=== PATIENT | male | born 1980 | race Caucasian/White ===

== ENCOUNTER → 2019-05-08 21:00 | Outpatient (CLI) | payer BC, SELFPAY ==
[2019-05-08 18:02] VITALS: BMI 37.2
== END ==
PROVIDERS: Family Provider Family Medicine; PCP Family Medicine; Referring Provider Nurse Practitioner; Visit Provider Nurse Practitioner
DX: R79.1 Abnormal coagulation profile (principal); I82.409 Acute embolism and thrombosis of unspecified deep veins of unspecified lower extremity
CPT/HCPCS: 81241; 85300; 86147

== ENCOUNTER → 2023-01-09 | Outpatient (CLI) | payer BC, SELFPAY ==
[2023-01-09 21:21] LABS: Vitamin B12 1269 pg/mL (211-911)
[2023-01-09 21:31] LABS: Hemoglobin A1c 5.1 % (3.8-5.6)
[2023-01-09 21:32] LABS: AST(SGOT) 40 U/L (15-37); Alanine Aminotransfer ALT/SGPT 61 U/L (16-61); Albumin, Serum 3.9 g/dL (3.2-5.0); Alkaline Phosphatase 71 U/L (45-117); Anion Gap 7 (5-15); BUN 20 mg/dL (7-18); BUN/Creat Ratio 18.5 RATIO (10-20); Chloride 102 mmol/L (98-107); Creatinine, Serum 1.08 mg/dL (0.70-1.30); EST Glomerular Filtration Rate 80 mL/min (>60); Est Glom Filt Rate - Afr Amer 97 mL/min (>60); Globulin 3.9 g/dL (2.2-4.2); Glucose 108 mg/dL (74-106); PSA,Total- Diagnostic 0.82 ng/mL (0.0-4.0); Potassium 3.9 mmol/L (3.5-5.1); Protein, Total 7.8 g/dL (6.4-8.2); Sodium Level 139 mmol/L (136-145); Thyroid Stim Hormone (TSH) 2.59 uIU/mL (0.358-3.74)
== END | disposition home or self-care (01) ==
PROVIDERS: PCP Family Medicine; Visit Provider Nurse Practitioner
DX: R63.5 Abnormal weight gain (principal); R53.83 Other fatigue; R35.0 Frequency of micturition; R63.1 Polydipsia
CPT/HCPCS: 80053; 82607; 83036; 84153; 84403; 84443

== ENCOUNTER → 2023-03-20 | Outpatient (CLI) | payer BC, SELFPAY ==
[2023-03-20 20:46] LABS: Absolute Lymphocyte Count 2.13 X10^3/uL (0.83-4.51); Absolute Neutrophil Count 2.8 X10^3/uL (2.0-7.7); Basophil# 0.05 X10^3/uL; Basophil% 0.9 % (0-1); Eosinophil# 0.17 X10^3/uL; Hematocrit 44.4 % (40-54); Hemoglobin 14.2 g/dL (13.0-16.5); Lymphocyte # 2.13 X10^3/ul (0.83-4.51); Lymphocyte % 37.4 % (19-41); Mean Corpuscular Hgb 28.5 pg (27.0-32.0); Mean Platelet Vol. 11.4 fl (6.2-12.0); Monocyte# 0.54 X10^3/uL; Monocyte% 9.5 % (0-10); NRBC Flagged by Analyzer 0 % (0-5); Neutrophil # 2.79 X10^3/uL (2.7-7.7); Platelet Count 194 K/mm3 (150-450); RBC Distribution Width CV 13.4 % (11.6-14.6); RBC Distribution Width SD 43.8 fl (35.1-43.9); Red Blood Count 4.99 M/mm3 (4.6-6.2); White Blood Count 5.7 K/mm3 (4.4-11.0)
[2023-03-20 21:14] LABS: PSA,Total - Annual Screen 1.09 ng/mL (0.00-4.00)
== END | disposition home or self-care (01) ==
PROVIDERS: Visit Provider Nurse Practitioner
DX: N52.9 Male erectile dysfunction, unspecified (principal); R79.89 Other specified abnormal findings of blood chemistry
CPT/HCPCS: 84153; 84403; 85025; G0103

== ENCOUNTER → 2023-05-01 | Outpatient (CLI) | payer BC, SELFPAY ==
[2023-05-01 21:35] LABS: PSA,Total- Diagnostic 0.75 ng/mL (0.0-4.0)
== END | disposition home or self-care (01) ==
PROVIDERS: Visit Provider Nurse Practitioner
DX: R79.89 Other specified abnormal findings of blood chemistry (principal); E29.1 Testicular hypofunction
CPT/HCPCS: 84153; 84403

== ENCOUNTER → 2023-08-07 | Outpatient (CLI) | payer BC, SELFPAY | END | disposition home or self-care (01) | PROVIDERS: PCP Nurse Practitioner; Visit Provider Nurse Practitioner | DX: E29.1 Testicular hypofunction (principal) | CPT/HCPCS: 84403 ==

== ENCOUNTER → 2024-01-08 | Outpatient (CLI) | payer BC, SELFPAY ==
--- OUTSIDE RECORDS SUMMARY | 2024-01-08 23:36 | XMS RPT_ITS | CCD ---
Author Name Unknown Address [address] [facility] [address] [place] [address] Organization [facility] Care Team Providers Care Station Worker Name Role Phone Indiana Garcia Primary Care Provider Mini Farley Primary Care Provider UNA MUNOZ Attending Unavailable MINI FARLEY Primary Care Unavailable UNA MUNOZ Referring Unavailable MINI FARLEY Primary Care Unavailable UNA MUNOZ Attending Unavailable UNA MUNOZ Attending Unavailable MINI FARLEY Primary Care Unavailable Miguelito MOTORCYCLE ENGINE ASSEMBLER.CRANK HANDMini Primary Care Provide r Medications Current Medications Medication Drug Class(es) Dates Sig (Normalized) Sig (Original) 200 actuat albuterol 0.09 mg/actuat dry powder inhaler (4 sources) beta2-Adrenergic Agonist Albuterol Sulfate 108 (90 Base) MCG/ACT aerosol powder Inhale. 0 Active apixaban 5 mg oral tablet (2 sources) Factor Xa Inhibitor Start: 12-02-2018 take 2 tablets by mouth twice daily, then take 1 tablet by mouth twice daily apixaban (ELIQUIS STARTER PACK) 5 MG TABS tablet Take 10 mg (2 tablets) orally twice daily for 7 days, then take 5 mg (1 tablet) orally twice daily thereafter. 74 tablet 0 12/02/2018 Active ibuprofen 800 mg oral tablet (1 source) Nonsteroidal Anti-inflammatory Drug Start: 12-09-2019 ibuprofen (ADVIL;MOTRIN) 800 MG tablet Ibuprofen Ibuprofen Active 800 MG THREE TIMES A DAY 90 December 09, 2019 7:51pm 12-09-2019 [facility] ([id number]) 0 12/09/2019 Active sodium chloride nebulizer 0.9 % NEBU 30 mL with albuterol (5 MG/ML) 0.5% NEBU (1 source) sodium chloride nebulizer 0.9 % NEBU 30 mL with albuterol (5 MG/ML) 0.5% NEBU Inhale into the lungs once 0 Active tadalafil 20 mg oral tablet (1 source) Phosphodiesterase 5 Inhibitor Start: 09-20-2020 End: 09-30-2020 tadalafil (CIALIS) 20 MG tablet Indications: Erectile dysfunction, unspecified erectile dysfunction type Take 1 tablet by mouth as needed for Erectile Dysfunction 10 tablet 0 09/20/2020 09/30/2020 Active 5000 mg testosterone 0.01 mg/mg topical gel (4 sources) Androgen Start: 01-30-2023 testosterone (Androgel) 50 MG/5GM (1%) gel apply 1 packet to SHOULDERS once daily 0 01/30/2023 Active warfarin sodium 10 mg oral tablet (9 sources) Vitamin K Antagonist Start: 08-03-2023 take 1 tablet by mouth four times weekly warfarin (Coumadin) 10 MG tablet TAKE 10MG BY MOUTH 4 TIME A WEEK 0 08/03/2023 Active Completed/Discontinued Medications Medication Drug Class(es) Dates Sig (Normalized) Sig (Original) 0.8 ml enoxaparin sodium 150 mg/ml prefilled syringe (1 source) Low Molecular Weight Heparin Start: 04-07-2022 inject 120 mg by subcutaneous injection every twelve hours enoxaparin (LOVENOX) 120 mg/0.8 mL injection Inject 0.8 mL subcutaneously q 12 HR. 12 Each 0 04/07/2022 Active Problems Active Problems Problem Classification Problem Date Documented Da te Episodic/Chronic Asthma (4 sources) Mild intermittent asthma; Translations: [Mild intermittent asthma, uncomplicated] Onset: 08-15-2023 08-15-2023 Chronic Other lower respiratory disease (1 source) Dyspnea; Translations: [Shortness of breath] 08-15-2023 Episodic Other male genital disorders (1 source) Male erectile dysfunction, unspecified; Translations: [Erectile dysfunction, unspecified erectile dysfunction type] Chronic Other non-traumatic joint disorders (1 source) Pain in right knee; Translations: [Pain in joint, lower leg] 01-07-2024 Episodic Other nutritional; endocrine; and metabolic disorders (2 sources) Severe obesity; Translations: [Morbid (severe) obesity due to excess calories] 08-15-2023 Chronic Other nutritional; endocrine; and metabolic disorders (2 sources) Morbid (severe) obesity due to excess calories; Translations: [Morbid (severe) obesity due to excess calories (HCC)] Onset: 11-21-2023 Chronic Other nutritional; endocrine; and metabolic disorders (2 sources) Body mass index (BMI) 40.0-44.9, adult; Translations: [Body mass index (BMI) 40.0-44.9, adult (HCC)] Onset: 11-21-2023 Chronic Other nutritional; endocrine; and metabolic disorders (1 source) Obese class II; Translations: [Obesity, unspecified] Onset: 04-06-2022 04-06-2022 Chronic Pulmonary heart disease (6 sources) H/O: pulmonary embolus; Translations: [Personal history of pulmonary embolism] Onset: 10-15-2023 08-15-2023 Episodic Residual codes; unclassified (2 sources) Obstructive sleep apnea syndrome; Translations: [Obstructive sleep apnea (adult) (pediatric)] 08-15-2023 Chronic Residual codes; unclassified (2 sources) Obstructive sleep apnea (adult) (pediatric); Translations: [Obstructive sleep apnea (adult) (pediatric)] Onset: 11-21-2023 Chronic Skin and subcutaneous tissue infections (1 source) Cellulitis of right lower limb Past or Other Problems Problem Classification Problem Date Documented Da te Episodic/Chronic Nonspecific chest pain (1 source) Chest pain; Translations: [Chest pain, unspecified] Onset: 04-05-2022 04-05-2022 Episodic Results Test Name Value Interpretation Reference Range Facil ity Vital Signs Date Time Vital Sign Value Performing Clinician Faci lity 11-21-2023 15:43-0500 Diastolic blood pressure 86 mm[Hg] Una Munoz MD Work Phone: [employer] 11-21-2023 15:43-0500 Systolic blood pressure 141 mm[Hg] Una Munoz MD Work Phone: [employer] 11-21-2023 15:42-0500 Body height 175.3 cm Una Munoz MD Work Phone: [employer] 11-21-2023 15:42-0500 Body mass index (BMI) [Ratio] 40.52 kg/m2 Una Munoz MD Work Phone: [facility] [employer] 11-21-2023 15:42-0500 Body weight 124.47 kg Una Munoz MD Work Phone: [facility] [employer] 11-21-2023 15:42-0500 Heart rate 95 /min Una Munoz MD Work Phone: [facility] [employer] 11-21-2023 15:42-0500 Respiratory rate 18 /min Una Munoz MD Work Phone: [facility] [employer] 11-21-2023 15:42-0500 SaO2% (BldA) [Mass fraction] 95 % Una Munoz MD Work Phone: [facility] [employer] Encounters Encounter Date Encounter Type Care Provider Facility Start: 01-07-2024 Orders Only Una Swan PA-C Work Phone: Orthopaedics Procedures Date Procedure Procedure Detail Performing Clinician Start: 12-02-2018 Follow-up visit Start: 11-28-2018 Follow-up visit Plan of Treatment Date Care Activity Detail Author Start: 2041 RSV Immunization age d 60 or older (1 - 1-dose 60+ series) RSV Immunization aged 60 or older (1 - 1-dose 60+ series) [facility] [employer] Start: 2031 Shingles Vaccine (1 of 2) Shingles Vaccine (1 of 2) [facility] Work Phone: Start: 2031 Zoster Vaccines (1 of 2) Zoster Vacc rodney (1 of 2) [facility] Start: 12-16-2023 End: 12-16-2023 Patient encounter procedure 12/16/2023 9:15 AM EST Appointment [facility] Pulm Function Test [address] [place] [address] Una Munoz MD [address] [place] [address] [id number] [facility] Pulm Function Test Start: 11-21-2023 End: 11-21-2024 Home sleep test Home sleep test Sleep Center Routine Obstructive sleep apnea syndrome Expected: 11/21/2023 (Approximate), Expires: 11/21/2024 [facility] Work Phone: Immunizations Immunization Date Immunization Notes Care Provider Sandra harris 10-02-2020 influenza virus vacc ine, unspecified formulation Una Swan PA-C Work Phone: [facility] Payers Date Payer Category Payer Unknown [id number] 2022 Unknown [id number] 2019 Unknown [id number] 2015 Unknown [employer] [address] xxxxxxxxxxxx 2015-Present [phone] [address] [place] [address] xxxxxxxxxxxx [id number] Social History Date Type Detail Facility Start: 12-02-2018 End: 04-05-2022 Tobacco smoking status CTIS Never smoker [facility] Start: 1981 Sex Assigned At Not on file [facility] Work Phone: Start: 09-20-2020 End: 04-05-2022 Tobacco use and exposure Never used [employer] [place], [place] Start: 09-20-2020 End: 04-06-2022 Alcohol intake Current drinker of alcohol (finding) [facility] [place] Start: 09-20-2020 History SDOH Alcohol Frequency 2 [place], [place] Start: 09-20-2020 History SDOH Alcohol Std Drinks 1 [place] Exposure to SARS-CoV -2 (event) Not sure [place] Start: 07-16-2023 Gender identity Identifies as male gender (finding) [facility] Start: 04-06-2022 End: 08-15-2023 Sexual orientation Not on file [facility] Start: 04-06-2022 End: 08-15-2023 History of Social function [facility] [employer] National Score (1-10 0), lower number is lower risk 36 [facility] Start: 04-05-2022 [facility] Clinical Notes 04-05-2022 to 11-21-2023 Una Munoz MD - 11/21/2023 3:45 PM ESTPatient InstructionsUna Munoz MD - 08/15/2023 3:30 PM EDTPatient InstructionsTelephone Encounter - Gloriara Vivian MA - 07/23/2023 10:54 AM EDT Note Date & Type Note Facility 11-21-2023 Note 11/21/2023 REFERRING PHYSICIAN: MINI FARLEY REASON FOR REFERRAL: Chief Complaint Patient presents with Follow-up Chief complaint: Shortness of breath and obstructive sleep apnea syndrome History of Present Illness: Has not had the breathing difficulties that he had the last time he was here. Intermittent shortness of breath, intermittent tightness, intermittent wheeze. His only uses albuterol inhaler a few times in the past few months. Never did get a call to schedule the PFTs. Concerned he has obstructive sleep apnea, snores so loud that his cannot sleep, stops breathing, has excessive daytime somnolence. Willing to get a sleep study. ROS: Review of Systems Constitutional: Negative. HENT: Negative. Eyes: Negative. Respiratory: HPI Cardiovascular: Negative. Gastrointestinal: Negative. Endocrine: Negative. Musculoskeletal: Negative. Skin: Negative. Allergic/Immunologic: Negative. Neurological: Negative. Hematological: Negative. Psychiatric/Behavioral: Negative. Past Medical History: Past Medical History: Diagnosis Date Asthma Deep vein thrombosis (HCC) Low testosterone Pulmonary embolism (HCC) Past Surgical History Past Surgical History: Procedure Laterality Date KNEE ARTHROSCOPY Left x 4 Social History: Social History Socioeconomic History Marital status: Tobacco Use Smoking status: Never Smokeless tobacco: Never Substance and Sexual Activity Alcohol use: Yes Drug use: Never Medications: Current Outpatient Medications Medication Sig Dispense Refill Albuterol Sulfate 108 (90 Base) MCG/ACT aerosol powder Inhale. testosterone (Androgel) 50 MG/5GM (1%) gel apply 1 packet to SHOULDERS once daily warfarin (Coumadin) 10 MG tablet TAKE 10MG BY MOUTH 4 TIME A WEEK warfarin (Coumadin) 7.5 MG tablet take 1 tablet (7.5MG) by mouth EVERY SATURDAY,SATURDAY, AND MATEUSZ No current facility-administered medications for this visit. Allergies: No Known Allergies Family History: Family History Problem Relation Name Age of Onset Heart disease Maternal Grandmother Breast cancer Paternal Grandmother Diabetes Paternal Grandmother Physical Exam: BP (!) 141/86 (11/21/23 1543) Temp Pulse 95 (11/21/23 1542) Resp 18 (11/21/23 1542) SpO2 95 % (RA) (11/21/23 1542) Physical Exam Vitals and nursing note reviewed. Constitutional: General: He is not in acute distress. Appearance: Normal appearance. He is obese. He is not ill-appearing, toxic-appearing or diaphoretic. HENT: Head: Normocephalic and atraumatic. Nose: Nose normal. Mouth/Throat: Mouth: Mucous membranes are moist. Pharynx: Oropharynx is clear. No oropharyngeal exudate or posterior oropharyngeal erythema. Eyes: Extraocular Movements: Extraocular movements intact. Conjunctiva/sclera: Conjunctivae normal. Pupils: Pupils are equal, round, and reactive to light. Cardiovascular: Rate and Rhythm: Normal rate and regular rhythm. Heart sounds: Normal heart sounds. Pulmonary: Effort: Pulmonary effort is normal. No respiratory distress. Breath sounds: No stridor. No wheezing, rhonchi or rales. Musculoskeletal: General: Deformity present. No swelling. Cervical back: Neck supple. No rigidity. Lymphadenopathy: Cervical: No cervical adenopathy. Skin: General: Skin is warm and dry. Neurological: General: No focal deficit present. Mental Status: He is alert and oriented to person, place, and time. Psychiatric: Mood and Affect: Mood normal. Behavior: Behavior normal. Thought Content: Thought content normal. Judgment: Judgment normal. Radiology: Reviewed, normal PFT: Never scheduled Assessment and Plan: Jun was seen today for follow-up. Diagnoses and all orders for this visit: Obstructive sleep apnea syndrome (Primary) - Home sleep test; Future Mild intermittent asthma without complication History of pulmonary embolism Class 3 severe obesity due to excess calories without serious comorbidity with body mass index (BMI) of 40.0 to 44.9 in adult (HCC) Albuterol as needed Hold off on a controller medication for now PFTs HST Optimize weight Follow-up: Follow up for Test results. [facility] 11-21-2023 History of Presen t illness Narrative Images from the original note were not included. 11/21/2023 REFERRING PHYSICIAN: MINI FARLEY REASON FOR REFERRAL: Chief Complaint Patient presents with Follow-up Chief complaint: Shortness of breath and obstructive sleep apnea syndrome History of Present Illness: Has not had the breathing difficulties that he had the last time he was here. Intermittent shortness of breath, intermittent tightness, intermittent wheeze. His only uses albuterol inhaler a few times in the past few months. Never did get a call to schedule the PFTs. Concerned he has obstructive sleep apnea, snores so loud that his cannot sleep, stops breathing, has excessive daytime somnolence. Willing to get a sleep study. ROS: Review of Systems Constitutional: Negative. HENT: Negative. Eyes: Negative. Respiratory: HPI Cardiovascular: Negative. Gastrointestinal: Negative. Endocrine: Negative. Musculoskeletal: Negative. Skin: Negative. Allergic/Immunologic: Negative. Neurological: Negative. Hematological: Negative. Psychiatric/Behavioral: Negative. Past Medical History: Past Medical History: Diagnosis Date Asthma Deep vein thrombosis (HCC) Low testosterone Pulmonary embolism (HCC) Past Surgical History Past Surgical History: Procedure Laterality Date KNEE ARTHROSCOPY Left x 4 Social History: Social History Socioeconomic History Marital status: Tobacco Use Smoking status: Never Smokeless tobacco: Never Substance and Sexual Activity Alcohol use: Yes Drug use: Never Medications: Current Outpatient Medications Medication Sig Dispense Refill Albuterol Sulfate 108 (90 Base) MCG/ACT aerosol powder Inhale. testosterone (Androgel) 50 MG/5GM (1%) gel apply 1 packet to SHOULDERS once daily warfarin (Coumadin) 10 MG tablet TAKE 10MG BY MOUTH 4 TIME A WEEK warfarin (Coumadin) 7.5 MG tablet take 1 tablet (7.5MG) by mouth EVERY SATURDAY,SATURDAY, AND SATURDAY No current facility-administered medications for this visit. Allergies: No Known Allergies Family History: Family History Problem Relation Name Age of Onset Heart disease Maternal Grandmother Breast cancer Paternal Grandmother Diabetes Paternal Grandmother Physical Exam: BP (!) 141/86 (11/21/23 1543) Temp Pulse 95 (11/21/23 1542) Resp 18 (11/21/23 1542) SpO2 95 % (RA) (11/21/23 1542) Physical Exam Vitals and nursing note reviewed. Constitutional: General: He is not in acute distress. Appearance: Normal appearance. He is obese. He is not ill-appearing, toxic-appearing or diaphoretic. HENT: Head: Normocephalic and atraumatic. Nose: Nose normal. Mouth/Throat: Mouth: Mucous membranes are moist. Pharynx: Oropharynx is clear. No oropharyngeal exudate or posterior oropharyngeal erythema. Eyes: Extraocular Movements: Extraocular movements intact. Conjunctiva/sclera: Conjunctivae normal. Pupils: Pupils are equal, round, and reactive to light. Cardiovascular: Rate and Rhythm: Normal rate and regular rhythm. Heart sounds: Normal heart sounds. Pulmonary: Effort: Pulmonary effort is normal. No respiratory distress. Breath sounds: No stridor. No wheezing, rhonchi or rales. Musculoskeletal: General: Deformity present. No swelling. Cervical back: Neck supple. No rigidity. Lymphadenopathy: Cervical: No cervical adenopathy. Skin: General: Skin is warm and dry. Neurological: General: No focal deficit present. Mental Status: He is alert and oriented to person, place, and time. Psychiatric: Mood and Affect: Mood normal. Behavior: Behavior normal. Thought Content: Thought content normal. Judgment: Judgment normal. Radiology: Reviewed, normal PFT: Never scheduled Assessment and Plan: Jun was seen today for follow-up. Diagnoses and all orders for this visit: Obstructive sleep apnea syndrome (Primary) - Home sleep test; Future Mild intermittent asthma without complication History of pulmonary embolism Class 3 severe obesity due to excess calories without serious comorbidity with body mass index (BMI) of 40.0 to 44.9 in adult (HCC) Albuterol as needed Hold off on a controller medication for now PFTs HST Optimize weight Follow-up: Follow up for Test results. documented in this encounter [facility] 11-21-2023 Instructions Amna Oglesby MA - 11/21/2023 3:45 PM EST YOUR APPOINTMENT TODAY WAS WITH [facility], COPD CLINIC, PULMONARY AND SLEEP MEDICINE OFFICE. PLEASE CALL OUR OFFICE AT [phone] IF YOU HAVE NOT RECEIVED YOUR TEST RESULTS 7 DAYS AFTER TESTING IS COMPLETED. PLEASE REMEMBER TO REQUEST REFILLS AT YOUR OFFICE VISITS. PHONE/FAX REQUESTS REQUIRE 48-72 HOURS FOR RESPONSE. A FRIENDLY REMINDER COPAYS ARE DUE AT TIME OF SERVICE. THANK YOU. Our Patients Are Important! We want to improve and you can help. After your visit we want you to feel: Listened to, Respected and have your health care explained. You may receive a survey asking you about your visit. Please complete the survey. We will use your feedback to make improvements. COVID-19 VACCINATION INFORMATION: PH. [phone] [email or web address] [facility] Central Scheduling [phone] [facility] Sleep Scheduling [phone] documented in this encounter [facility] 08-15-2023 Note 08/15/2023 REFERRING PHYSICIAN: MINI FARLEY REASON FOR REFERRAL: Chief Complaint Patient presents with New Patient Chief complaint: Shortness of breath, tightness, chest pains History of Present Illness: Had a blood clot in his lung 03/2022, hospitalized at [facility] for 3 days. As a matter fact, has had 4 separate blood clots and the customer services supervisor has him on Coumadin for life. His INR is checked every 2 months, it has been as low as 1.5 before but most recently was 1.9. He is here because he started getting shortness of breath on exertion, tightness, and chest pains (not as severe) again just like he felt when he had the blood clot. He does wheeze on occasion. He notes that this mostly happens during exertion at work. He is also happens when the weather changes and he gets bad sinus problems when the weather changes, too. He only uses albuterol for his asthma, sometimes it helps and sometimes it does not. Has been diagnosed with asthma since childhood but never been on a controller medication. Never smoked. 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 His also complains about his snoring, thinks he might have sleep apnea. He does have daytime fatigue. ROS: Review of Systems Constitutional: Negative. HENT: Negative. Eyes: Negative. Respiratory: HPI Cardiovascular: Negative. Gastrointestinal: Negative. Endocrine: Negative. Musculoskeletal: Negative. Skin: Negative. Allergic/Immunologic: Negative. Neurological: Negative. Hematological: Negative. Psychiatric/Behavioral: Negative. Past Medical History: Past Medical History: Diagnosis Date Asthma Deep vein thrombosis (HCC) Low testosterone Pulmonary embolism (HCC) Past Surgical History Past Surgical History: Procedure Laterality Date KNEE ARTHROSCOPY Left x 4 Social History: Social History Socioeconomic History Marital status: Tobacco Use Smoking status: Never Smokeless tobacco: Never Substance and Sexual Activity Alcohol use: Yes Drug use: Never Medications: Current Outpatient Medications Medication Sig Dispense Refill Albuterol Sulfate 108 (90 Base) MCG/ACT aerosol powder Inhale. testosterone (Androgel) 50 MG/5GM (1%) gel apply 1 packet to SHOULDERS once daily warfarin (Coumadin) 10 MG tablet TAKE 10MG BY MOUTH 4 TIME A WEEK warfarin (Coumadin) 7.5 MG tablet take 1 tablet (7.5MG) by mouth EVERY SATURDAY,SATURDAY, AND SATURDAY No current facility-administered medications for this visit. Allergies: No Known Allergies Family History: Family History Problem Relation Name Age of Onset Heart disease Maternal Grandmother Breast cancer Paternal Grandmother Diabetes Paternal Grandmother Physical Exam: BP 122/85 (08/15/23 1527) Temp Pulse 75 (08/15/23 1527) Resp 14 (08/15/23 1527) SpO2 98 % (RA) (08/15/23 1527) Physical Exam Vitals and nursing note reviewed. Constitutional: General: He is not in acute distress. Appearance: Normal appearance. He is obese. He is not ill-appearing, toxic-appearing or diaphoretic. HENT: Head: Normocephalic and atraumatic. Nose: Nose normal. Mouth/Throat: Mouth: Mucous membranes are moist. Pharynx: Oropharynx is clear. No oropharyngeal exudate or posterior oropharyngeal erythema. Eyes: Extraocular Movements: Extraocular movements intact. Conjunctiva/sclera: Conjunctivae normal. Pupils: Pupils are equal, round, and reactive to light. Cardiovascular: Rate and Rhythm: Normal rate and regular rhythm. Heart sounds: Normal heart sounds. Pulmonary: Effort: Pulmonary effort is normal. No respiratory distress. Breath sounds: No stridor. No wheezing, rhonchi or rales. Musculoskeletal: General: No swelling or deformity. Cervical back: Neck supple. No rigidity. Lymphadenopathy: Head: Right side of head: No submental or submandibular adenopathy. Left side of head: No submental or submandibular adenopathy. Cervical: No cervical adenopathy. Right cervical: No superficial, deep or posterior cervical adenopathy. Left cervical: No superficial, deep or posterior cervical adenopathy. Upper Body: Right upper body: No supraclavicular or axillary adenopathy. Left upper body: No supraclavicular or axillary adenopathy. Skin: General: Skin is warm and dry. Neurological: General: No focal deficit present. Mental Status: He is alert and oriented to person, place, and time. Psychiatric: Mood and Affect: Mood normal. Behavior: Behavior normal. Thought Content: Thought content normal. Judgment: Judgment normal. Radiology: Last CT chest 04/05/2022 at [facility], report says limited study with no major central PE but small peripheral PEs cannot be excluded, and also notes a patchy density in the lingula which can be seen with infection and pulmonary infarct. PFT: None Assessment and Plan: Jun was seen today for new patient. Diagnoses and all orders for this visit: Mild intermittent asthma without complica (more content not included)... [facility] 08-15-2023 History of Presen t illness Narrative Images from the original note were not included. 08/15/2023 REFERRING PHYSICIAN: MINI FARLEY REASON FOR REFERRAL: Chief Complaint Patient presents with New Patient Chief complaint: Shortness of breath, tightness, chest pains History of Present Illness: Had a blood clot in his lung 03/2022, hospitalized at [facility] for 3 days. As a matter fact, has had 4 separate blood clots and the customer services supervisor has him on Coumadin for life. His INR is checked every 2 months, it has been as low as 1.5 before but most recently was 1.9. He is here because he started getting shortness of breath on exertion, tightness, and chest pains (not as severe) again just like he felt when he had the blood clot. He does wheeze on occasion. He notes that this mostly happens during exertion at work. He is also happens when the weather changes and he gets bad sinus problems when the weather changes, too. He only uses albuterol for his asthma, sometimes it helps and sometimes it does not. Has been diagnosed with asthma since childhood but never been on a controller medication. Never smoked. He works at [employer] and in a [employer]. His also complains about his snoring, thinks he might have sleep apnea. He does have daytime fatigue. ROS: Review of Systems Constitutional: Negative. HENT: Negative. Eyes: Negative. Respiratory: HPI Cardiovascular: Negative. Gastrointestinal: Negative. Endocrine: Negative. Musculoskeletal: Negative. Skin: Negative. Allergic/Immunologic: Negative. Neurological: Negative. Hematological: Negative. Psychiatric/Behavioral: Negative. Past Medical History: Past Medical History: Diagnosis Date Asthma Deep vein thrombosis (HCC) Low testosterone Pulmonary embolism (HCC) Past Surgical History Past Surgical History: Procedure Laterality Date KNEE ARTHROSCOPY Left x 4 Social History: Social History Socioeconomic History Marital status: Tobacco Use Smoking status: Never Smokeless tobacco: Never Substance and Sexual Activity Alcohol use: Yes Drug use: Never Medications: Current Outpatient Medications Medication Sig Dispense Refill Albuterol Sulfate 108 (90 Base) MCG/ACT aerosol powder Inhale. testosterone (Androgel) 50 MG/5GM (1%) gel apply 1 packet to SHOULDERS once daily warfarin (Coumadin) 10 MG tablet TAKE 10MG BY MOUTH 4 TIME A WEEK warfarin (Coumadin) 7.5 MG tablet take 1 tablet (7.5MG) by mouth EVERY SATURDAY,SATURDAY, AND SATURDAY No current facility-administered medications for this visit. Allergies: No Known Allergies Family History: Family History Problem Relation Name Age of Onset Heart disease Maternal Grandmother Breast cancer Paternal Grandmother Diabetes Paternal Grandmother Physical Exam: BP 122/85 (08/15/23 1527) Temp Pulse 75 (08/15/23 1527) Resp 14 (08/15/23 1527) SpO2 98 % (RA) (08/15/23 1527) Physical Exam Vitals and nursing note reviewed. Constitutional: General: He is not in acute distress. Appearance: Normal appearance. He is obese. He is not ill-appearing, toxic-appearing or diaphoretic. HENT: Head: Normocephalic and atraumatic. Nose: Nose normal. Mouth/Throat: Mouth: Mucous membranes are moist. Pharynx: Oropharynx is clear. No oropharyngeal exudate or posterior oropharyngeal erythema. Eyes: Extraocular Movements: Extraocular movements intact. Conjunctiva/sclera: Conjunctivae normal. Pupils: Pupils are equal, round, and reactive to light. Cardiovascular: Rate and Rhythm: Normal rate and regular rhythm. Heart sounds: Normal heart sounds. Pulmonary: Effort: Pulmonary effort is normal. No respiratory distress. Breath sounds: No stridor. No wheezing, rhonchi or rales. Musculoskeletal: General: No swelling or deformity. Cervical back: Neck supple. No rigidity. Lymphadenopathy: Head: Right side of head: No submental or submandibular adenopathy. Left side of head: No submental or submandibular adenopathy. Cervical: No cervical adenopathy. Right cervical: No superficial, deep or posterior cervical adenopathy. Left cervical: No superficial, deep or posterior cervical adenopathy. Upper Body: Right upper body: No supraclavicular or axillary adenopathy. Left upper body: No supraclavicular or axillary adenopathy. Skin: General: Skin is warm and dry. Neurological: General: No focal deficit present. Mental Status: He is alert and oriented to person, place, and time. Psychiatric: Mood and Affect: Mood normal. Behavior: Behavior normal. Thought Content: Thought content normal. Judgment: Judgment normal. Radiology: Last CT chest 04/05/2022 at [facility], report says limited study with no major central PE but small peripheral PEs cannot be excluded, and also notes a patchy density in the lingula which can be seen with infection and pulmonary infarct. PFT: None Assessment and Plan: Jun was seen today for new patient. Diagnoses and all orders for this visit: Mild intermittent asthma without complication (Primary) - Complete PFT pre and post bronchodilator; Future Shortness of breath History of pulmonary embolism - CT chest angiogram w and/or wo IV contrast; Future Obstructive sleep apnea syndrome Class 3 severe obesity due to excess calories without serious comorbidity with body mass index (BMI) of 40.0 to 44.9 in adult (HCC) He is currently therapeutic on Coumadin, but there was one reported time when he was subtherapeutic. Although clinical suspicion is low given this information, will do CTA chest looking for recurrent PE. His shortness of breath, tightness, and pains could be due to undertreated asthma. 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 Follow-up: Follow up for Test results. documented in this encounter [facility] 08-15-2023 Instructions Carolina Hanley MA - 08/15/2023 3:30 PM EDT YOUR APPOINTMENT TODAY WAS WITH THE [facility], COPD CLINIC, PULMONARY AND SLEEP MEDICINE OFFICE. PLEASE CALL OUR OFFICE AT [phone] IF YOU HAVE NOT RECEIVED YOUR TEST RESULTS 7 DAYS AFTER TESTING IS COMPLETED. PLEASE REMEMBER TO REQUEST REFILLS AT YOUR OFFICE VISITS. PHONE/FAX REQUESTS REQUIRE 48-72 HOURS FOR RESPONSE. A FRIENDLY REMINDER COPAYS ARE DUE AT TIME OF SERVICE. THANK YOU. Our Patients Are Important! We want to improve and you can help. After your visit we want you to feel: Listened to, Respected and have your health care explained. You may receive a survey asking you about your visit. Please complete the survey. We will use your feedback to make improvements. COVID-19 VACCINATION INFORMATION: PH. [phone] [email or web address] [facility] Central Scheduling [phone] [facility] Sleep Scheduling [phone] documented in this encounter [facility] 07-23-2023 Telephone encount er Note Pt scheduled with Dr. Munoz. [facility] 07-23-2023 Miscellaneous Notes Formattin g of this note might be different from the original. Pt scheduled with Dr. Munoz. Received voicemail from pt to schedule FINISHING TRIMMER appt with Dr. Munoz. Didn't specify why he needs seen. Called patient back left message to return call to office. documented in this encounter [facility] 07-05-2023 Telephone encount er Note Received voicemail from pt to schedule FINISHING TRIMMER appt with Dr. Munoz. Didn't specify why he needs seen. Called patient back left message to return call to office. [facility] 04-07-2022 Note HNO ID: [id number] Author: Nichole Mcgraw MD Service: General Internal Medicine Author Type: Physician Type: Progress Notes Filed: 04/07/2022 2:30 PM Note Text: INTERNAL MEDICINE PROGRESS NOTE ADMITTING PHYSICIAN: Patito Carrion MD Subjective CHIEF COMPLAINT: Chest pain is better No shortness of breath Current Facility-Administered Medications Medication Dose Route Frequency - warfarin 5 mg tab(s) (COUMADIN) 5 mg ORAL DAILY - WARFARIN - iv contrast (radiology procedure) INTRAVENOUS DIRECTED PRN - enoxaparin 120 mg injection (LOVENOX) 1 mg/kg/dose SUBCUTANEOUS q 12 HR - HYDROmorphone 0.5 mg injection (DILAUDID) 0.5 mg INTRAVENOUS q 4 H PRN - ondansetron (PF) 4 mg injection (ZOFRAN) 4 mg INTRAVENOUS q 6 H PRN - sodium chloride 0.9 % (flush) 2-10 mL (BD POSIFLUSH) 2-10 mL INTRAVENOUS q 12 H Objective PHYSICAL EXAM: BP 115/69 Pulse 64 Temp 36.5 ?C (97.7 ?F) (Oral) Resp 20 Ht 175.3 cm (5' 9 ) Wt 118.4 kg (261 lb) SpO2 97% BMI 38.54 kg/m? GENERAL: Alert, no distress, cooperative LUNGS: Lungs clear to auscultation. Good diaphragmatic excursion. CARDIAC: Normal S1 and S2; no rubs, murmurs, or gallops ABDOMEN: Abdomen soft, non-tender, BS normal, No masses or organomegaly EXTREMITIES: Extremities normal, no deformities, edema, clubbing or skin discoloration. Good capillary refill., No ulcers DATA: Diagnostic tests reviewed for today's visit: Most recent labs Most recent imaging Assessment/Plan Principal Problem: Chest pain Acute PE Obesity, PLAN: Await hematology eval On lovenox/coumadin Pain control Resume home meds Monitor clinically Medication and Non-Pharmacologic VTE Prophylaxis/Anticoagulants Anticoagulant AND Antiplatelet Medications (From admission, onward) Start Dose Route Frequency Last Action Ordered Stop 04/07/22 1700 warfarin 5 mg tab(s) (COUMADIN) 5 mg ORAL DAILY - WARFARIN Ordered 04/07/22 1414 -- 04/06/22 0000 enoxaparin 120 mg injection (LOVENOX) (enoxaparin injection (LOVENOX)) 1 mg/kg/dose SUBCUTANEOUS EVERY 12 HOURS Given, 04/07 0804/05/22 2344 -- VTE Prophylaxis: VTE prophylaxis appropriate SIGNATURE: Nichole Mcgraw MD PATIENT NAME: Jimmy Stauffer [facility] 04-05-2022 Note HNO ID: [id number] Author: Meka Amor RN Service: Nursing Author Type: Registered Nurse Type: ED Notes Filed: 04/05/2022 9:58 PM Note Text: US in progress at [facility] documented in this encounter [facility] HealthEvaluation note* Diagnosis History of pulmonary embolism Personal history of venous thrombosis and embolism documented in this encounter [facility] note* Diagnosis Obstructive sleep apnea syndrome- Primary Obstructive sleep apnea (adult) (pediatric) Mild intermittent asthma without complication History of pulmonary embolism Personal history of venous thrombosis and embolism Class 3 severe obesity due to excess calories without serious comorbidity with body mass index (BMI) of 40.0 to 44.9 in adult (HCC) documented in this encounter [facility] healthcare note* Diagnosis Right knee pain, unspecified chronicity- Primary documented in this encounter [facility] for referral (narrative)* Diagnostic Procedure Only (Routine) - Pending Review Specialty Diagnoses / Procedures Referred By Sharad cadena Referred To Contact XR IMAGING Diagnoses Right knee pain, unspecified chronicity Procedures XR KNEE POST OP 3V AP/LAT/MERCHANT RIGHT RADIOLOGIC EXAMINATION KNEE 3 VIEWS Una Swan PA-C [address] [place] [address] [place] [id number] Referral ID Status Reason Start Date Expiration Date Visits Requested Visits Authorized [id number] Pending Review Auto-Generat ed Referral 01/07/2024 02/05/2025 1 1 [facility] Summary Purpose Family History No Family History Records FoundNo Family History Records FoundNo Family History Records FoundNo Family History Records FoundNo Family History Records Found Advance Directives Documents on File Type Date Recorded Patient Stevedoring Supervisor Expl anation Advance Directives and Living Will Power of Seat Joiner Documents on File Type Date Recorded Patient Stevedoring Supervisor Expl anation ACP-Advance Directive ACP-Power of Seat Joiner Discharge Instructions * Attachments The following attachments cannot be sent through Care Everywhere. * Cellulitis ([place]) documented in this encounter Assessments Diagnosis Cellulitis of right lower extremity- Primary Cellulitis and abscess of leg, except foot Diagnosis Erectile dysfunction, unspecified erectile dysfunction type Reason for Referral Specialty Diagnoses / Procedures Referred By Sharad cadena Referred To Contact Diagnoses Mild intermittent asthma without complication Procedures Complete PFT pre and post bronchodilator Una Munoz MD [address] [place] [address] Referral ID Status Reason Start Date Expiration Date V isits Requested Visits Authorized [id number] Pending Review 08/15/2023 02/11/2024 1 1 Specialty Diagnoses / Procedures Referred By Sharad cadena Referred To Contact Radiology Diagnoses History of pulmonary embolism Procedures CT chest angiogram w and/or wo IV contrast Una Munoz MD [address] [address] Referral ID Status Reason Start Date Expiration Date V isits Requested Visits Authorized [id number] Pending Review 08/15/2023 02/11/2024 1 1 Referral ID Status Reason Start Date Expiration Date Visits Re quested Visits Authorized [id number] Closed 08/15/2023 02/11/2024 1 1 Specialty Diagnoses / Procedures Referred By Sharad cadena Referred To Contact Sleep Medicine Diagnoses Obstructive sleep apnea syndrome Procedures Home sleep test Una Munoz MD [address] [address] Referral ID Status Reason Start Date Expiration Date V isits Requested Visits Authorized [id number] Pending Review 11/21/2023 11/15/2024 1 1 Additional Source Comments (unrecognized sect ion and content) No Status Records FoundNo Status Records FoundNo Status Records FoundNo Status Records FoundNo Status Records Found INFORMATION SOURCE (unrecogn ized section and content) DATE CREATED AUTHOR AUTHOR'S ORGANIZ ATION 12/31/2019 [facility] DATE CREATED AUTHOR AUTHOR'S ORGANIZ ATION 09/26/2020 [facility] DATE CREATED AUTHOR AUTHOR'S ORGANIZ ATION 04/13/2022 [facility] DATE CREATED AUTHOR AUTHOR'S ORGANIZ ATION 11/23/2023 [facility] Reason for Visit (unrecogniz ed section and content) Reason Comments New Patient Specialty Diagnoses / Procedures Referred By Contac t Referred To Contact Radiology Diagnoses History of pulmonary embolism Procedures CT chest angiogram w and/or wo IV contrast Una Munoz MD [address] [place] [id number] Referral ID Status Reason Start Date Expiration Date Visits Re quested Visits Authorized [id number] Closed 08/15/2023 02/11/2024 1 1 Reason Comments Follow-up Care Teams (unrecognized sec tion and content) Station Worker Relationship Specialty Start Date End Date Mini Farley [address] [place] [address] PCP - General 04/05/21 Station Worker Relationship Specialty Start Date End Date Mini Farley [address] [place] [address] PCP - General 04/05/21 Station Worker Relationship Specialty Start Date End Date Mini Farley APRN.CNP [address] [place], [place] [id number] PCP - General Family Medicine 04/05/22 Source Comments (unrecognize d section and content) In the event this informatio n is protected by the Federal Confidentiality of Alcohol and Drug Abuse Patient Records regulations: The Federal rules restrict any use of the information to criminally investigate or prosecute any alcohol or drug abuse patient.[facility] FOR RECORDS PERTAINING TO PATIENTS WHO ARE OR HAVE BEEN ENROLLED IN A CHEMICAL DEPENDENCY/SUBSTANCEABUSE PROGRAM, SOME INFORMATION MAY BE OMITTED. This clinical summary was aggregated from multiple sources. Caution should be exercised in using it in the provision of clinical care. This summary normalizes information from multiple sources, and as a consequence, information in this document may materially change the coding, format and clinical context of patient data. In addition, data may be omitted in some cases. CLINICAL DECISIONS SHOULD BE BASED ON THE PRIMARY CLINICAL RECORDS. [facility] [employer] [facility]. provides no warranty or guarantee of the accuracy or completeness of information in this document.
== END | disposition home or self-care (01) ==
PROVIDERS: PCP Nurse Practitioner; Visit Provider Nurse Practitioner
DX: E29.1 Testicular hypofunction (principal)

== ENCOUNTER → 2024-07-06 | Outpatient (CLI) | payer BC, SELFPAY ==
[2024-07-06 21:50] LABS: PSA,Total- Diagnostic 1.35 ng/mL (0.0-4.0)
== END | disposition home or self-care (01) ==
PROVIDERS: PCP Nurse Practitioner; Referring Provider Nurse Practitioner; Visit Provider Nurse Practitioner
DX: E29.1 Testicular hypofunction (principal)
CPT/HCPCS: 84153; 84403

== ENCOUNTER → 2025-01-27 | Outpatient (CLI) | payer BC, SELFPAY ==
[2025-01-27 22:14] LABS: Absolute Neutrophil Count 2.9 X10^3/uL (2.0-7.7); Basophil# 0.05 X10^3/uL; Eosinophil# 0.13 X10^3/uL; Eosinophils% 2.5 % (0-5); Hematocrit 44.5 % (40-54); Hemoglobin 14.6 g/dL (13.0-16.5); Lymphocyte % 32.4 % (19-41); Mean Corp Hgb Conc 32.8 g/dL (32-36); Mean Corpuscular Hgb 28.6 pg (27.0-32.0); Mean Corpuscular Volume 87.1 fL (80-94); Monocyte# 0.42 X10^3/uL; NRBC Flagged by Analyzer 0 % (0-5); Neutrophil # 2.92 X10^3/uL (2.7-7.7); Neutrophil % 55.7 % (47-70); Platelet Count 207 K/mm3 (150-450); RBC Distribution Width CV 14.6 % (11.6-14.6); RBC Distribution Width SD 46.7 fl (35.1-43.9); Red Blood Count 5.11 M/mm3 (4.6-6.2); White Blood Count 5.2 K/mm3 (4.4-11.0)
[2025-01-27 22:35] LABS: ALB/GLOB Ratio 1.4 RATIO (0.9-2.4); AST(SGOT) 30 U/L (<=37); Alanine Aminotransfer ALT/SGPT 30 U/L (<=46); Albumin, Serum 4.2 g/dL (3.5-5.0); Alkaline Phosphatase 57 U/L (40-129); Anion Gap 11 (5-15); BUN 20 mg/dL (4-19); BUN/Creat Ratio 19.9 RATIO (10-20); Calcium,Total 9.2 mg/dL (7.6-11.0); Carbon Dioxide 22.8 mmol/L (21.0-32.0); Chloride 105 mmol/L (98-108); Creatinine, Serum 0.99 mg/dL (0.70-1.20); EST Glomerular Filtration Rate 97 (>60); Globulin 2.9 g/dL (2.2-4.2); Glucose 93 mg/dL (70-99); Potassium 4.2 mmol/L (3.3-5.1); Protein, Total 7.1 g/dL (5.9-8.4); Sodium Level 139 mmol/L (133-145); Total Bilirubin 0.65 mg/dL (0.00-1.30)
== END | disposition home or self-care (01) ==
LOC: OLS.AHF 21:58
PROVIDERS: PCP Nurse Practitioner
DX: E29.1 Testicular hypofunction (principal); R79.89 Other specified abnormal findings of blood chemistry; N52.2 Drug-induced erectile dysfunction
CPT/HCPCS: 80053; 84403; 85025

== ENCOUNTER → 2025-07-28 | Outpatient (CLI) | payer BC, SELFPAY ==
[2025-07-28 22:57] LABS: AST(SGOT) 33 U/L (<=37); Alanine Aminotransfer ALT/SGPT 30 U/L (<=46); Albumin, Serum 4.7 g/dL (3.5-5.0); Alkaline Phosphatase 56 U/L (40-129); Anion Gap 12 (5-15); BUN 23 mg/dL (4-19); BUN/Creat Ratio 27.0 RATIO (10-20); Calcium,Total 9.9 mg/dL (7.6-11.0); Carbon Dioxide 25.6 mmol/L (21.0-32.0); Chloride 101 mmol/L (98-108); Globulin 3.2 g/dL (2.2-4.2); Glucose 81 mg/dL (70-99); Potassium 4.6 mmol/L (3.3-5.1)
[2025-07-29 01:53] LABS: PSA,Total- Diagnostic 1.38 ng/mL (0.00-4.00)
== END | disposition home or self-care (01) ==
LOC: LABSPEC 22:18
PROVIDERS: PCP Nurse Practitioner; Visit Provider Nurse Practitioner
DX: N40.1 Benign prostatic hyperplasia with lower urinary tract symptoms (principal)
CPT/HCPCS: 80053; 84153; 84403